=== PATIENT | female | born 1980 | race Caucasian/White ===

== ENCOUNTER 2017-03-03 07:45 | Inpatient (IN) | payer BC, OTHER ==
[2017-03-05 12:58] LABS: ABSOLUTE EOSINOPHILS # (AUTO) 0.3 10^3/uL (0.0-0.6); ABSOLUTE LYMPHOCYTES (AUTO) 1.7 10^3/uL (0.5-4.7); ABSOLUTE MONOCYTES (AUTO) 0.6 10^3/uL (0.1-1.4); ABSOLUTE NEUT (AUTO) 8.9 10^3/uL (1.7-8.2); BASOPHILS % (AUTO) 0.4 % (0-2); EOSINOPHILS % (AUTO) 2.8 % (0-6); HEMATOCRIT 34.4 % (36.0-47.0); HEMOGLOBIN 11.9 g/dL (12.0-15.5); HGB HCT DIFFERENCE 1.3; LYMPHOCYTES % (AUTO) 14.9 % (13-45); MEAN CORPUSCULAR HEMOGLOBIN 31.2 pg (27.0-33.4); MEAN CORPUSCULAR HGB CONC 34.5 g/dL (32.0-36.0); MEAN CORPUSCULAR VOLUME 91 fl (80-97); MONOCYTES % (AUTO) 5.3 % (3-13); RED BLOOD COUNT 3.81 10^6/uL (3.72-5.28); RED CELL DISTRIBUTION WIDTH 14.1 % (11.5-14.0); SEGMENTED NEUTROPHILS % (AUTO) 76.6 % (42-78); WHITE BLOOD COUNT 11.7 10^3/uL (4.0-10.5)
[2017-03-05 13:02] LABS: APPEARANCE,URINE SLIGHTLY-CLOUDY; BILIRUBIN,URINE NEGATIVE (NEGATIVE); GLUCOSE, URINE NEGATIVE (NEGATIVE); KETONES,URINE TRACE mg/dL (NEGATIVE); LEUKOCYTE ESTERASE,URINE NEGATIVE (NEGATIVE); NITRITE,URINE NEGATIVE (NEGATIVE); PROTEIN,URINE NEGATIVE (NEGATIVE); URINE SPECIFIC GRAVITY 1.017; UROBILINOGEN,URINE NEGATIVE mg/dL (<2.0)
[2017-03-05 13:22] LABS: URINE METHADONE SCREEN NEGATIVE; URINE OPIATES LOW NEGATIVE; URINE PHENCYCLIDINE SCREEN NEGATIVE
[2017-03-05 14:16] LABS: URINE BARBITURATES SCREEN UNCONFIRMED POSITIVE
[2017-03-06 14:09] LABS: ABSOLUTE BASOPHILS # (AUTO) 0.1 10^3/uL (0.0-0.2); ABSOLUTE EOSINOPHILS # (AUTO) 0.4 10^3/uL (0.0-0.6); ABSOLUTE LYMPHOCYTES (AUTO) 1.9 10^3/uL (0.5-4.7); ABSOLUTE MONOCYTES (AUTO) 0.7 10^3/uL (0.1-1.4); ABSOLUTE NEUT (AUTO) 8.5 10^3/uL (1.7-8.2); BASOPHILS % (AUTO) 0.5 % (0-2); EOSINOPHILS % (AUTO) 3.2 % (0-6); HEMATOCRIT 33.5 % (36.0-47.0); HEMOGLOBIN 11.1 g/dL (12.0-15.5); HGB HCT DIFFERENCE -0.2; LYMPHOCYTES % (AUTO) 16.9 % (13-45); MEAN CORPUSCULAR HEMOGLOBIN 30.3 pg (27.0-33.4); MEAN CORPUSCULAR HGB CONC 33.2 g/dL (32.0-36.0); MEAN CORPUSCULAR VOLUME 91 fl (80-97); MONOCYTES % (AUTO) 5.7 % (3-13); RED BLOOD COUNT 3.68 10^6/uL (3.72-5.28); RED CELL DISTRIBUTION WIDTH 14.1 % (11.5-14.0); SEGMENTED NEUTROPHILS % (AUTO) 73.7 % (42-78); WHITE BLOOD COUNT 11.5 10^3/uL (4.0-10.5)
[2017-03-06 14:23] LABS: APPEARANCE,URINE CLEAR; BILIRUBIN,URINE NEGATIVE (NEGATIVE); GLUCOSE, URINE NEGATIVE (NEGATIVE); KETONES,URINE NEGATIVE (NEGATIVE); LEUKOCYTE ESTERASE,URINE NEGATIVE (NEGATIVE); NITRITE,URINE NEGATIVE (NEGATIVE); PROTEIN,URINE NEGATIVE (NEGATIVE); URINE SPECIFIC GRAVITY 1.008; UROBILINOGEN,URINE NEGATIVE mg/dL (<2.0)
[2017-03-06 14:26] LABS: URINE BARBITURATES SCREEN NEGATIVE; URINE METHADONE SCREEN NEGATIVE; URINE OPIATES LOW NEGATIVE; URINE PHENCYCLIDINE SCREEN NEGATIVE
[2017-03-08] MEDS ORDERED: CEFAZOLIN 1 GM/D5W RTU 1 GM/50 ML RTUPB IV PRN (07:20)
[2017-03-08] MEDS ORDERED: LACTATED RINGERS 1000 ML IV PRN (07:21)
[2017-03-08] MEDS ORDERED: LIDOCAINE 0.5% INJ-PF (5 MG/ML) 50 ML SDV SUBCUT PRN (07:21)
[2017-03-08] MEDS ORDERED: RINGERS SOLUTION,LACTATED 2,000 ML IV PRN (07:22)
[2017-03-08] MEDS ORDERED: CEFAZOLIN 2 GM/D5W RTU 2 GM/50 ML RTUPB IV ONE (09:08)
[2017-03-08] MEDS ORDERED: MISOPROSTOL 0.2 MG TABLET ONE (09:10)
[2017-03-08] MEDS ORDERED: OXYTOCIN/NORMAL SALINE 20 UNIT/1,000 ML RTUINJ ONE ×2 (09:16→11:00)
[2017-03-08] MEDS ORDERED: OXYTOCIN 10 UNIT/ML VIAL ONE (09:16)
[2017-03-08] MEDS ORDERED: ONDANSETRON HCL INJ/PF 4 MG/2 ML SDV ONE ×2 (09:17→10:39)
[2017-03-08] MEDS ORDERED: ACETAMINOPHEN 100 ML IV ONE (09:17)
[2017-03-08] MEDS ORDERED: FENTANYL CITRATE INJ/PF 100 MCG/2 ML AMPUL IV PRN ×3 (09:49)
[2017-03-08] MEDS ORDERED: MEPERIDINE HCL/PF INJ 25 MG/1 ML DISP.SYRIN IV PRN (09:49)
[2017-03-08] MEDS ORDERED: OXYCODONE-ACETAMINOPHEN 5-325 MG TABLET PO PRN ×3 (09:49→13:00)
[2017-03-08] MEDS ORDERED: DIPHENHYDRAMINE HCL 50 MG/ML VIAL IV PRN (09:49)
[2017-03-08] MEDS ORDERED: MORPHINE SULFATE 10 MG/ML INJ IV PRN ×3 (09:49→13:21)
[2017-03-08] MEDS ORDERED: PROMETHAZINE HCL INJ 25 MG/1 ML VIAL IV PRN ×2 (09:49)
[2017-03-08] MEDS ORDERED: MIDAZOLAM 2 MG/2 ML INJ ONE (10:02)
[2017-03-08] MEDS ORDERED: KETOROLAC TROMETHAMINE INJ/PF 30 MG/1 ML SDV ONE (10:26)
[2017-03-08] MEDS: FENTANYL CITRATE INJ/PF 100 MCG/2 ML AMPUL ONE ×2 (10:38→11:40)
--- NOTE | 2017-03-08 10:53 | OPERATIVE REPORT E ---
Operative Report NAME: YAEL BRICE : 1980 AGE: 36Y DATE OF SURGERY: 03/08/2017 ROOM: 215 PREOPERATIVE DIAGNOSIS: 1. Intrauterine at 39 weeks with gestational diabetes class A2. 2. History of x2 with desire for repeat and desire for permanent sterilization. POSTOPERATIVE DIAGNOSIS: 1. Intrauterine at 39 weeks with gestational diabetes class A2. 2. History of x2 with desire for repeat and desire for permanent sterilization. OPERATION: Repeat low transverse cervical section with bilateral tubal ligation. SURGEON: KATHE WAHL M.D. ANESTHESIA: Spinal. ESTIMATED BLOOD LOSS: Six-hundred mL. SPECIMEN TO PATHOLOGY: Placenta. FINDINGS: Aguilar female , vertex presentation, clear amniotic fluid. Apgars were 7 and 9. Weight was 7 pounds 3 ounces. Normal appearing uterus, tubes, and ovaries. DESCRIPTION OF PROCEDURE: After discussing the risks, benefits, and alternatives of the procedure and obtaining informed consent, patient was taken to the operating room where spinal anesthesia was achieved. She was positioned in the dorsal supine position with a leftward tilt. She was prepped and draped in the usual standard fashion. Pfannenstiel skin incision was made. Abdomen was entered in layers in a standard fashion. A few bladder adhesions were removed sharply. A low transverse cervical incision was made. The surgeon's hand was entered into the hysterotomy incision and the vertex delivered easily. Shoulders and body delivered easily thereafter. Nasopharynx and oropharynx were bulb suctioned. Cord was clamped x2 and cut. was handed to Pediatrics who were present. Placenta was manually extracted. The uterus was exteriorized and cleared of all clots and debris. The hysterotomy incision was closed with 0 Monocryl in a running locked fashion. Excellent hemostasis was observed. A Filshie clip was placed across the isthmic portion of each fallopian tube. The uterus, tubes, and ovaries were then returned to the peritoneal cavity and the peritoneal cavity was irrigated with saline. Hemostasis was again assured. The peritoneum was closed with 2-0 Vicryl in a pursestring fashion. Rectus muscles were loosely reapproximated with interrupted sutures of 2-0 Vicryl. The subfascial spaces were inspected and noted to be hemostatic. The fascia was closed with 0 Vicryl. The subcutaneous spaces were irrigated and hemostasis achieved with cautery. Then 3-0 plain uterus was used to reapproximate the subcutaneous spaces. The skin was closed in a subcuticular fashion with 3-0 Monocryl. An OpSite dressing was applied. Cytotec 1000 mcg was placed per rectum to maintain good uterine tone. All sponge, needle, lap, and instrument counts were correct x2. DICTATING PHYSICIAN: KATHE WAHL M.D. [id number] PHY#: [id number] ID: [id number] JOB#: [id number] ACCT: [id number] cc:KATHE WAHL M.D. >
[2017-03-08] MEDS: MEPERIDINE HCL/PF INJ 25 MG/1 ML DISP.SYRIN ONE ×2 (10:55→11:15)
[2017-03-08] MEDS ORDERED: OXYTOCIN/NORMAL SALINE 20 UNIT/1,000 ML RTUINJ INJ PRN (12:58)
[2017-03-08] MEDS ORDERED: RINGERS SOLUTION,LACTATED 1,000 ML IV SCH (13:00)
[2017-03-08] MEDS ORDERED: DIPH/PERTUSS(ACELL)/TETANUS VAC/PF 0.5 ML SYR (>=10YO) IM PRN (13:00)
[2017-03-08] MEDS ORDERED: HYDROMORPHONE HCL INJ/PF 2 MG/ML AMPULE IV PRN (13:00)
[2017-03-08] MEDS ORDERED: MEASLES,MUMPS&RUBELLA VACC/PF 0.5 ML VIAL SUBCUT PRN (13:00)
[2017-03-08] MEDS ORDERED: PROMETHAZINE HCL INJ 25 MG/1 ML VIAL IM PRN (13:00)
[2017-03-08] MEDS ORDERED: ACETAMINOPHEN 325 MG TABLET PO PRN (13:00)
[2017-03-08] MEDS ORDERED: SIMETHICONE 80 MG TAB.CHEW PO PRN (13:00)
[2017-03-08] MEDS ORDERED: OXYCODONE-ACETAMINOPHEN 5-325 MG TABLET ONE (13:05)
[2017-03-08] MEDS ORDERED: (PENDING PHARMACY ID) (Ergocalciferol (Vitamin D2) [Vitamin D] 400 UNIT) PO SCH (18:00)
[2017-03-08] MEDS ORDERED: METFORMIN HCL 500 MG TABLET PO SCH ×2 (18:00→22:00)
[2017-03-08] MEDS ORDERED: (PENDING PHARMACY ID) (Metformin Hcl [Glucophage] 500 MG) PO SCH (18:00)
[2017-03-08] MEDS: DOCUSATE SODIUM 100 MG CAPSULE PO SCH (18:03)
[2017-03-08] MEDS: OXYCODONE-ACETAMINOPHEN 5-325 MG TABLET PO PRN (18:24)
[2017-03-08] MEDS ORDERED: KETOROLAC TROMETHAMINE INJ/PF 30 MG/1 ML SDV IV SCH (19:00)
[2017-03-09] MEDS: OXYCODONE-ACETAMINOPHEN 5-325 MG TABLET PO PRN ×3 (02:13→17:53)
[2017-03-09 06:58] LABS: HEMATOCRIT 30.9 % (36.0-47.0); HEMOGLOBIN 10.2 g/dL (12.0-15.5); HGB HCT DIFFERENCE -0.3; MEAN CORPUSCULAR HEMOGLOBIN 29.9 pg (27.0-33.4); MEAN CORPUSCULAR HGB CONC 32.8 g/dL (32.0-36.0); MEAN CORPUSCULAR VOLUME 91 fl (80-97); RED BLOOD COUNT 3.39 10^6/uL (3.72-5.28); RED CELL DISTRIBUTION WIDTH 14.3 % (11.5-14.0); WHITE BLOOD COUNT 12.8 10^3/uL (4.0-10.5)
[2017-03-09] MEDS: PRENATAL VITAMIN W-O CA NO5/FE FUMARATE/FA CAPSULE PO SCH ×2 (09:18→11:08)
[2017-03-09] MEDS: SENNOSIDES/DOCUSATE 8.6-50 MG 1 EACH TABLET PO SCH (09:18)
[2017-03-09] MEDS: LEVOTHYROXINE SODIUM 0.075 MG TABLET PO SCH (09:18)
[2017-03-09] MEDS: DOCUSATE SODIUM 100 MG CAPSULE PO SCH ×2 (09:19→17:52)
[2017-03-09] MEDS: POLYETHYLENE GLYCOL 3350 POWDER 17 GM/1 PACKET PO SCH (09:19)
[2017-03-09] MEDS: LORATADINE 10 MG TABLET PO SCH (09:19)
[2017-03-09] MEDS: IBUPROFEN 800 MG TABLET PO SCH ×3 (09:20→20:57)
[2017-03-09] MEDS: METOPROLOL SUCCINATE 25 MG TAB.SR.24H PO SCH (09:34)
[2017-03-09] MEDS ORDERED: DHA PO SCH (10:00)
[2017-03-09] MEDS ORDERED: [UNRECOGNIZED DRUG - OTHER] PO SCH (10:00)
[2017-03-09] MEDS ORDERED: (PENDING PHARMACY ID) (Fexofenadine Hcl [Allegra Allergy] 180 MG) PO SCH (10:00)
[2017-03-09] MEDS ORDERED: PRENAT VIT COMB PO SCH (10:00)
[2017-03-09] MEDS ORDERED: POLYETHYLENE GLYCOL 119 GM PO SCH (10:00)
[2017-03-09] MEDS ORDERED: IRON PO SCH (10:00)
[2017-03-09] MEDS ORDERED: (PENDING PHARMACY ID) (Ergocalciferol (Vitamin D2) [Vitamin D] 400 UNIT) PO SCH (10:00)
--- NOTE | 2017-03-09 10:58 | PDOC PROGRESS REPORT ---
Subjective-OB Subjective: Post Delivery Day: 36 year old. Denies any needs at this time Holding baby, feels she is in more pain with this C/S, reminded to take pain medication, eating, voiding, OOB, passing gas, breast feeding Physical Exam (OB) Vital Signs: Temp Pulse Resp BP Pulse Ox 97.9 F 91 17 118/82 96 03/09/17 07:49 03/09/17 07:49 03/09/17 07:49 03/09/17 07:49 03/09/17 07:49 Intake & Output 03/08/17 03/09/17 03/10/17 06:59 06:59 06:59 Intake Total 5250 600 Output Total 3450 Balance 1800 600 Weight 96.162 kg - Dressing Removed: No - opsite dressing D&I, no drainage, redness or swelling noted Incision: Well Approximated - Bilateral Tubal Ligation Dressing Removed: No - honeycomb dressing Site: Dressing - Lochia Lochia Amount: Scant < 10 ml Lochia Color: Rubra/Red - Abdomen Description: Tender, Soft Hernia Present: No Fundal Description: Firm, Midline Fundal Height: u/u - u/2 Objective-Diagnostic Laboratory: 03/09/17 06:14 03/09/17 06:14 WBC 12.8 H RBC 3.39 L Hgb 10.2 L Hct 30.9 L MCV 91 MCH 29.9 MCHC 32.8 RDW 14.3 H Plt Count 275 Assessment and Plan(PN) - Assessment and Plan (1) Diabetes mellitus affecting Qualifiers: Trimester: second trimester Qualified Code(s): O24.912 - Unspecified diabetes mellitus in , second trimester Is this a current diagnosis for this admission?: Yes (2) Status post repeat low transverse section Is this a current diagnosis for this admission?: Yes - Time Spent with Patient Time with patient: Less than 15 minutes Medications reviewed and adjusted accordingly: Yes - Disposition Anticipated Discharge: Home Within: within 24 hours
[2017-03-10] MEDS: IBUPROFEN 800 MG TABLET PO SCH ×2 (02:45→09:16)
[2017-03-10 08:14] VITALS: BP 113/70
--- NOTE | 2017-03-10 08:16 | PDOC DISCHARGE SUMMARY ---
Final Diagnosis Discharge Date: 03/10/17 Discharge Data - Discharge Medication Home Medications: Cyanocobalamin (Vitamin B-12) [Vitamin B-12] 1,000 mcg PO DAILY 03/05/17 Ergocalciferol (Vitamin D2) [Vitamin D] 400 unit PO DAILY 03/05/17 Ferrous Sulfate [Iron] 325 mg PO DAILY 03/05/17 Fexofenadine HCl [Daya Allergy] 180 mg PO DAILY 03/05/17 Levothyroxine Sodium [Synthroid 0.075 mg Tablet] 0.075 mg PO DAILY 03/05/17 Metformin HCl [Glucophage] 2,000 mg PO BID 03/05/17 Metoprolol Succinate 25 mg PO DAILY 03/05/17 Polyethylene Glycol 3350 [Miralax] 119 gm PO DAILY 03/05/17 Prenat Vit Comb.10/Iron/FA/Dha [Vitafol-Ob+Dha Combo Pack] 1 each PO DAILY 03/05 Docusate Sodium [Colace 100 mg Capsule] 100 mg PO BID #60 capsule 03/10/17 Ibuprofen [Motrin 800 mg Tablet] 800 mg PO Q6 #60 tablet 03/10/17 Oxycodone HCl/Acetaminophen [Percocet 5-325 mg Tablet] 2 tab PO Q4HP PRN #30 tablet 03/10/17 Gestational Age: 39 Reason(s) for Admission: Ceasarean Section-Repeat, Gestional Diabetes Procedures: NST Intrapartum Procedure(s): : Low Cervical, Transverse - Diagnosis Test Laboratory: Temp Pulse Resp BP Pulse Ox 97.7 F 87 18 113/75 97 03/10/17 04:16 03/10/17 04:16 03/10/17 04:16 03/10/17 04:16 03/10/17 04:16 03/05/17 03/05/17 03/06/17 11:40 11:48 13:55 RBC 3.81 3.68 L Hgb 11.9 L 11.1 L Hct 34.4 L 33.5 L Urine Opiates Screen NEGATIVE 03/06/17 03/09/17 14:00 06:14 RBC 3.39 L Hgb 10.2 L Hct 30.9 L Urine Opiates Screen NEGATIVE - Discharge information/Instructions Discharge Activity: Activity As Tolerated, No Driving, Pelvic Rest, No tub bath Discharge Diet: Regular Disposition: HOME, SELF-CARE Follow up with: [facility] in: 1, Weeks
[2017-03-10] MEDS: DOCUSATE SODIUM 100 MG CAPSULE PO SCH (09:15)
[2017-03-10] MEDS: POLYETHYLENE GLYCOL 3350 POWDER 17 GM/1 PACKET PO SCH (09:15)
[2017-03-10] MEDS: LEVOTHYROXINE SODIUM 0.075 MG TABLET PO SCH (09:15)
[2017-03-10] MEDS: LORATADINE 10 MG TABLET PO SCH (09:16)
[2017-03-10] MEDS: SENNOSIDES/DOCUSATE 8.6-50 MG 1 EACH TABLET PO SCH (09:16)
[2017-03-10] MEDS: PRENATAL VITAMIN W-O CA NO5/FE FUMARATE/FA CAPSULE PO SCH ×2 (09:17→11:16)
[2017-03-10] MEDS: METOPROLOL SUCCINATE 25 MG TAB.SR.24H PO SCH (09:17)
== END 2017-03-10 12:20 | disposition home or self-care (01) | DRG 766 ==
LOC: 2S 03-08 06:49
PROVIDERS: ADMIT Specialist; ATTEND Specialist
PROC: 0UL70CZ Occlusion of Bilateral Fallopian Tubes with Extraluminal Device, Open Approach (ICD-10-PCS; 2017-03-08)
PROC: 4A1HXCZ Monitoring of Products of Conception, Cardiac Rate, External Approach (ICD-10-PCS; 2017-03-08)
PROC: 10D00Z1 Extraction of Products of Conception, Low, Open Approach (ICD-10-PCS; principal; 2017-03-08 09:30)
DX: O34.211 Maternal care for low transverse scar from previous cesarean delivery (principal); O99.344 Other mental disorders complicating childbirth; O24.420 Gestational diabetes mellitus in childbirth, diet controlled; F41.9 Anxiety disorder, unspecified; Z87.891 Personal history of nicotine dependence; Z88.0 Allergy status to penicillin; Z91.012 Allergy to eggs; Z88.7 Allergy status to serum and vaccine; Z91.013 Allergy to seafood; Z30.2 Encounter for sterilization; Z81.8 Family history of other mental and behavioral disorders; Z82.3 Family history of stroke; Z83.3 Family history of diabetes mellitus; Z82.49 Family history of ischemic heart disease and other diseases of the circulatory system; Z3A.39 39 weeks gestation of pregnancy; Z37.0 Single live birth
CPT/HCPCS: 1961; 36415; 59025; 80307; 81001; 82962; 85025; 85027; 86850; 86900; 86901; 88307; 94799; J0131; J0690; J1885; J2175; J2250; J2270; J2405; J2590; J3010; J3490; J7120

== ENCOUNTER → 2017-03-06 | Outpatient (CLI) | payer OTHER | LOC: LAB 13:38 | PROVIDERS: ATTEND Specialist | DX: Z53.9 Procedure and treatment not carried out, unspecified reason (principal) | CPT/HCPCS: 36415; 80307; 81001; 85025; 86850; 86900; 86901 ==